=== PATIENT | male | born 1955 | race Two or more races ===

== ENCOUNTER 2023-08-16 15:14 | Emergency (ER) | payer OTHER ==
[~2023-08-16] VITALS: Ht 175.3 cm; Wt 93.1 kg
[2023-08-16 15:57] LABS: Urine Bacteria None Seen /hpf (None Seen); Urine WBC None Seen /hpf (0 - 3)
[2023-08-16 16:09] LABS: Urine Blood Negative /uL (Negative); Urine Clarity Clear (Clear); Urine Color Colorless (Yellow); Urine Protein, UAD Negative (Negative); Urine Specific Gravity 1.005 (1.001-1.035); Urine Urobilinogen Normal (Negative); Urine pH 5.5 (5.0-9.0)
[2023-08-16] MEDS ORDERED: SODIUM CHLORIDE 0.9% 1,000 ML IV ONE (17:45)
[2023-08-16 18:38] VITALS: BP 148/89; PULSE 98; RESP 18; TEMP 97.4; O2SAT 98
[2023-08-16 18:38] LABS: Basophils # (auto) 0 10 ^3/uL (0-0.2); Basophils % (auto) 0.6 % (0.0-2.0); Eosinophils # (auto) 0 10 ^3/uL (0-0.8); Eosinophils % (auto) 0.2 % (0.0-7.0); Hematocrit 45.3 % (41.0-53.0); Hemoglobin 15.5 g/dL (13.5-17.5); Lymphocytes # (auto) 3.3 10 ^3/uL (0.4-5.4); Lymphocytes % (auto) 52.7 % (10.0-50.0); Mean Corpuscular Hemoglobin 33.5 pg (28.0-32.0); Mean Corpuscular Hgb Conc. 34.2 g/dL (32.0-36.0); Mean Corpuscular Volume 97.9 fL (80.0-100.0); Monocytes # (auto) 0.3 10 ^3/uL (0-1.3); Monocytes % (auto) 5.2 % (0.0-12.0); Neutrophils # (auto) 2.6 10 ^3/uL (1.6-8.6); Neutrophils % (auto) 41.3 % (37.0-80.0); Nucleated Red Blood Cells % 0.2 %; Red Blood Cells 4.63 10^6/uL (4.5-5.90); Red Cell Distribution Width 15.1 % (11.8-14.3); White Blood Cell 6.2 10^3/uL (4.4-10.8)
[2023-08-16 19:05] LABS: Chloride 110 mmol/L (98-107); Potassium 3.7 mmol/L (3.5-5.1); Sodium 144 mmol/L (136-145)
[2023-08-16 19:06] LABS: Anion Gap 15 (5-15); Calcium 9.5 mg/dL (8.7-10.4); Carbon Dioxide 19 mmol/L (20-30)
[2023-08-16 19:11] LABS: BUN/Creatinine Ratio 6.5 (10.0-20.0); Blood Urea Nitrogen 5 mg/dL (9-23); Glucose 143 mg/dL (74-106); Magnesium 2.3 mg/dL (1.6-2.6)
[2023-08-16 19:38] LABS: Blood Alcohol 359.8 mg/dL (<10)
== END 2023-08-16 20:12 | disposition left against medical advice (07) ==
LOC: EDBD 15:14 → ER 15:14
DX: F10.129 Alcohol abuse with intoxication, unspecified (principal); Z79.899 Other long term (current) drug therapy; Y90.8 Blood alcohol level of 240 mg/100 ml or more
CPT/HCPCS: 36415; 80048; 80320; 81001; 83735; 85025